=== PATIENT | female | born 1960 | race Caucasian/White ===

== ENCOUNTER 2018-12-25 16:40 | Emergency (ER) | payer OTHER ==
[2018-12-25 17:01] VITALS: BP 159/98
[2018-12-25] MEDS ORDERED: Triamcinolone Acetonide* 40 MG/ML 1 ML VIAL IM ONE (17:35)
--- NOTE | 2018-12-25 17:42 | UC ---
Skin Complaint HPI - HPI Summary HPI Summary: 58 yo female with worsening skin rash x days after coming in contact with poison mare - History of Current Complaint Chief Complaint: UCSkin Time Seen by Provider: 12/25/18 17:22 Stated Complaint: POISON MARE Hx Obtained From: Patient Hx From Patient Unobtainable Due To: Dementia Onset/Duration: Gradual Onset Timing: Constant Onset Severity: Mild Current Severity: Moderate Pain Intensity: 0 Pain Scale Used: 0-10 Numeric Location: Generalized Character: Pruritus, Pain, Raised Aggravating Factor(s): Nothing Alleviating Factor(s): Antihistamines Associated Signs & Symptoms: Positive: Rash - Allergy/Home Medications Allergies/Adverse Reactions: Allergies Allergy/AdvReac Type Severity Reaction Status Date / Time Egg Derived Allergy Abdominal Verified 12/25/18 17:02 Pain Sulfa (Sulfonamide Allergy See Comment Verified 12/25/18 17:02 Antibiotics) ENVIRONMENTAL Allergy RESPIRATORY Uncoded 12/25/18 17:02 ISSUES PLASTIC BANDAIDS Allergy Rash Uncoded 12/25/18 17:02 Home Medications: Home Medications diphenhydrAMINE HCl [Benadryl Allergy] 50 mg PO 12/25/18 [History] PMH/Surg Hx/FS Hx/Imm Hx Previously Healthy: Yes - Surgical History Surgical History: Yes Surgery Procedure, Year, and Place: HEMORROIDECTOMY. LASIX - EYES - Family History Known Family History: Positive: Hypertension - Social History Alcohol Use: Occasionally Substance Use Type: None Smoking Status (MU): Never Smoked Tobacco Review of Systems All Other Systems Reviewed And Are Negative: Yes Constitutional: Positive: Negative Skin: Positive: Rash Eyes: Positive: Negative ENT: Positive: Negative Respiratory: Positive: Negative Cardiovascular: Positive: Negative Gastrointestinal: Positive: Negative Genitourinary: Positive: Negative Motor: Positive: Negative Neurovascular: Positive: Negative Musculoskeletal: Positive: Negative Neurological: Positive: Negative Psychological: Positive: Negative Physical Exam Triage Information Reviewed: Yes Appearance: Well-Appearing, No Pain Distress, Well-Nourished Vital Signs: Initial Vital Signs Temp 97.9 F 12/25/18 16:56 Pulse 79 12/25/18 16:56 Resp 18 12/25/18 16:56 BP 159/98 12/25/18 16:56 Pulse Ox 98 12/25/18 16:56 Vital Signs Reviewed: Yes Eyes: Positive: Conjunctiva Clear ENT: Negative: Hearing grossly normal, Nasal congestion, Nasal drainage, Trismus , Muffled voice, Hoarse voice Dental Exam: Normal Neck: Positive: Supple, Nontender, No Lymphadenopathy Respiratory: Positive: Lungs clear, Normal breath sounds, No respiratory distress Cardiovascular: Positive: RRR, No Murmur Bowel Sounds: Positive: Present Musculoskeletal: Positive: ROM Intact, No Edema Neurological: Positive: Alert Psychological Exam: Normal Skin Exam: Other - extensive rash c/w rhu dermatitis Course/Dx - Diagnoses Provider Diagnosis: Contact dermatitis, Elevated BP without diagnosis of hypertension Discharge - Sign-Out/Discharge Documenting (check all that apply): Patient Departure All imaging exams completed and their final reports reviewed: No Studies - Discharge Plan Condition: Stable Disposition: HOME Prescriptions: Triamcinolone 0.5% CREAM(NF) [Triamcinolone 0.5% CREAM*] 1 applic TOPICAL QID PRN #30 tube PRN Reason: Itching Patient Education Materials: [facility] [place] (ED) Referrals: Radha Stephenson MD [Primary Care Provider] - 2 Weeks (bp recheck in 2-12 weeks) - Billing Disposition and Condition Condition: STABLE Disposition: Home
== END 2018-12-25 18:10 | disposition home or self-care (01) ==
LOC: UCEAST 16:40
DX: L25.5 Unspecified contact dermatitis due to plants, except food (principal); R03.0 Elevated blood-pressure reading, without diagnosis of hypertension; Z91.012 Allergy to eggs; Z88.2 Allergy status to sulfonamides; Z91.048 Other nonmedicinal substance allergy status
CPT/HCPCS: 96372; 99212; G0463; J3301